=== PATIENT | female | born 1990 | race Caucasian/White ===

== ENCOUNTER 2023-08-05 23:54 | Emergency (ER) | payer OTHER ==
--- NOTE | 2023-08-06 00:55 | ED ---
Female Urogenital HPI - General Chief complaint: Vaginal Bleeding Stated complaint: Vaginal bleeding, 14 weeks Time Seen by Provider: 08/06/23 00:02 Source: patient, RN notes reviewed Mode of arrival: ambulatory Limitations: no limitations - History of Present Illness Initial comments: 33-year-old female presents emergency Department with chief complaint of vaginal bleeding. Patient states that she is should be around 14 weeks . She is scheduled to see her MAINTENANCE MANAGER the first time on Sunday and which she is seen Dr. Johns patient states that she is be positive blood type. Patient states she has painless vaginal bleeding states he initially had some spotting which is brown color in nature. She states it's bright red and which initially was only when she wiped but states that is now more heavy bleeding, large clot past. Patient again denies any flank pain, back pain. Patient is A0 - Related Data Allergies Allergy/AdvReac Type Severity Reaction Status Date / Time No Known Allergies Allergy Verified 08/05/23 23:58 Review of Systems ROS Statement: Those systems with pertinent positive or pertinent negative responses have been documented in the HPI. ROS Other: All systems not noted in ROS Statement are negative. Past Medical History Past Medical History: No Reported History History of Any Multi-Drug Resistant Organisms: None Reported Past Surgical History: Section Past Psychological History: No Psychological Hx Reported Smoking Status: Never smoker Past Alcohol Use History: None Reported Past Drug Use History: None Reported General Exam Limitations: no limitations General appearance: alert, in no apparent distress Head exam: Present: atraumatic, normocephalic, normal inspection Respiratory exam: Present: normal lung sounds bilaterally. Absent: respiratory distress, wheezes, rales, rhonchi, stridor Cardiovascular Exam: Present: regular rate, normal rhythm, normal heart sounds. Absent: systolic murmur, diastolic murmur, rubs, gallop, clicks GI/Abdominal exam: Present: soft, normal bowel sounds. Absent: distended, tenderness, guarding, rebound, rigid Back exam: Absent: CVA tenderness (R), CVA tenderness (L) Neurological exam: Present: alert Course Vital Signs 08/05/23 23:59 Temperature 98.5 F Pulse Rate 87 Respiratory 18 Rate Blood Pressure 145/84 O2 Sat by Pulse 98 Oximetry Medical Decision Making - Medical Decision Making Was pt. sent in by a medical professional or institution (PRAKASH Ross, CONTRACTING SPECIALIST, urgent care, hospital, or [place] health [facility] facility...) When possible be specific @ -MAINTENANCE MANAGER Did you speak to anyone other than the patient for history (EMS, parent, family, police, friend...)? What history was obtained from this source @ -No Did you review nursing and triage notes (agree or disagree)? Why? @ -I reviewed and agree with nursing and triage notes Were old charts reviewed (outside hosp., previous admission, EMS record, old EKG, old radiological studies, urgent care reports/EKG's, [place] health care facility records)? Report findings @ -No old charts were reviewed Differential Diagnosis (chest pain, altered mental status, abdominal pain women, abdominal pain men, vaginal bleeding, weakness, fever, dyspnea, syncope, headache, dizziness, GI bleed, back pain, seizure, CVA, palpatations, mental health, musculoskeletal)? @ -nDifferential Vaginal Bleeding: Spontaneous , threatened , molar , ectopic , bloody show, incompetent cervix, abruptioplacenta, placenta previa, uterine rupture, dysfunctional uterine bleeding, hemorrhage, uterine fibroids, this is not meant to be an all-inclusive list. EKG interpreted by me (3pts min.). @ -None X-rays interpreted by me (1pt min.). @ -None done CT interpreted by me (1pt min.). @ -None done U/S interpreted by me (1pt. min.). @ -Ultrasound OB limited shows demise What testing was considered but not performed or refused? (CT, X-rays, U/S, labs)? Why? @ -None What meds were considered but not given or refused? Why? @ -None Did you discuss the management of the patient with other professionals (professionals i.e. PRAKASH Ross, CONTRACTING SPECIALIST, lab, RT, psych nurse, manager social services, set builder, teacher, court officer, case management social worker)? Give summary @ -I did discuss case with Dr. Alexandre on-call who recommends patient called office this morning at 8:30 to be seen today Was smoking cessation discussed for >3mins.? @ -No Was critical care preformed (if so, how long)? @ -No Were there social determinants of health that impacted care today? How? (Homelessness, low income, unemployed, alcoholism, drug addiction, transportation, low edu. Level, literacy, decrease access to med. care, alf, rehab)? @ -No Was there de-escalation of care discussed even if they declined (Discuss DNR or withdrawal of care, Hospice)? DNR status @ -No What co-morbidities impacted this encounter? (DM, HTN, Smoking, COPD, CAD, Cancer, CVA, ARF, Chemo, Hep., AIDS, mental health diagnosis, sleep apnea, morbid obesity)? @ -None Was patient admitted / discharged? Hospital course, mention meds given and route, prescriptions, significant lab abnormalities, going to OR and other pertinent info. @ -Discharge patient will follow-up today in the morning for MAINTENANCE MANAGER follow-up Undiagnosed new problem with uncertain prognosis? @ -No Drug Therapy requiring intensive monitoring for toxicity (Heparin, Nitro, Insulin, Cardizem)? @ -No Were any procedures done? @ -No Diagnosis/symptom? @ - demise Acute, or Chronic, or Acute on Chronic? @ -Acute Uncomplicated (without systemic symptoms) or Complicated (systemic symptoms)? @ -Uncomplicated Side effects of treatment? @ -No Exacerbation, Progression, or Severe Exacerbation? @ -No Poses a threat to life or bodily function? How? (Chest pain, [place], [place], pneumonia, PE, COPD, DKA, ARF, appy, cholecystitis, CVA, Diverticulitis, Homicidal, Suicidal, threat to staff... and all critical care pts) @ -No Disposition Clinical Impression: demise Disposition: HOME SELF-CARE Condition: Stable Instructions (If sedation given, give patient instructions): Miscarriage (ED) Additional Instructions: Please contact the office at 8:30 in the morning.Please return to the Emergency Department if symptoms worsen or any other concerns. Is patient prescribed a controlled substance at d/c from ED?: No Referrals: Faheem Ludwig DO [Primary Care Provider] - 1-2 days Time of Disposition: 01:12
[2023-08-06 01:25] LABS: Appearance,Urine Clear (Clear); Bilirubin,Urine Negative (Negative); Blood,Urine Large (Negative); Color,Urine Colorless; Glucose,Urine (UA) Negative (Negative); Ketones,Urine Negative (Negative); Leukocyte Esterase,Urine Negative (Negative); Mucus,Urine Rare /hpf; Nitrite,Urine Negative (Negative); PH, Urine 6.5 (5.0-8.0); Protein,Urine Negative (Negative); RBC,Urine 2 /hpf (0-5); Specific Gravity,Urine 1.004 (1.001-1.035); Squamous Epithelial Cell,Urine <1 /hpf (0-4); Urobilinogen,Urine <2.0 mg/dL (<2.0); WBC,Urine 2 /hpf (0-5)
[2023-08-06 01:42] VITALS: BP 138/88; PULSE 97; RESP 20; TEMP 98
--- NOTE | 2023-08-06 01:56 | US ---
EXAM: US , Limited CLINICAL HISTORY: bleeding TECHNIQUE: Real-time limited ultrasound of the maternal uterus with image documentation. COMPARISON: No relevant prior studies available. FINDINGS: Fetus: A single intrauterine gestation is identified with the crown- rump length consistent with 10 weeks 6 days. There are no heart tones identified. Adnexa: The ovaries and adnexa were not interrogated. IMPRESSION: A single intrauterine gestation is identified with the crown-rump length consistent with 10 weeks 6 days. There are no heart tones identified. Findings are consistent with failure.
== END 2023-08-06 01:28 | disposition home or self-care (01) ==
LOC: EC 23:54
DX: O36.4XX1 Maternal care for intrauterine death, fetus 1 (principal); Z3A.10 10 weeks gestation of pregnancy
CPT/HCPCS: 76815; 81001; 99284

== ENCOUNTER → 2023-08-06 | Outpatient (CLI) | payer OTHER ==
[2023-08-07 04:06] LABS: Basophils # (A) 0.02 X 10*3/uL (0.00-0.10); Basophils % (A) 0.2 %; Eosinophils % (A) 4.4 %; HCT 42.1 % (37.2-46.3); HGB 13.9 g/dL (12.0-15.0); Lymphocytes # (A) 0.62 X 10*3/uL (0.90-5.00); Lymphocytes % (A) 6.9 %; MCV 93.8 FL (80.0-97.0); Mean Platelet Volume 10.5 FL (9.5-12.2); Monocytes # (A) 0.32 X 10*3/uL (0.20-1.00); Monocytes % (A) 3.5 %; NRBC Per 100 WBC 0 X 10*3/uL (0.00-0.01); Neutrophils # (A) 7.66 X 10*3/uL (1.80-7.70); Neutrophils % (A) 84.7 %; Platelet Count 216 X 10*3/uL (140-440); RBC 4.49 X 10*6/uL (4.10-5.20); RDW 12.1 % (11.5-14.5); WBC 9.05 X 10*3/uL (4.50-10.00)
== END | disposition home or self-care (01) ==
LOC: LABPAT 16:28
PROVIDERS: ATTEND Obstetrics & Gynecology
DX: Z01.812 Encounter for preprocedural laboratory examination (principal); O02.1 Missed abortion; Z3A.00 Weeks of gestation of pregnancy not specified
CPT/HCPCS: 85025; 86850; 86900; 86901

== ENCOUNTER 2023-08-11 00:10 | Emergency (ER) | payer OTHER ==
[2023-08-11 00:36] VITALS: TEMP 98
[2023-08-11] MEDS ORDERED: SODIUM CHLORIDE 0.9% 500 ML 500 ML IV STA (00:50)
[2023-08-11 01:47] LABS: Basophils % (A) 0 %; Eosinophils # (A) 0.3 k/uL (0-0.7); Eosinophils % (A) 3 %; HCT 39.3 % (34.0-46.0); HGB 13.5 gm/dL (11.4-16.0); Lymphocytes # (A) 1.8 k/uL (1.0-4.8); Lymphocytes % (A) 19 %; MCH 31.5 pg (25.0-35.0); MCHC 34.3 g/dL (31.0-37.0); MCV 91.8 fL (80.0-100.0); Mean Platelet Volume 7.9; Monocytes # (A) 0.3 k/uL (0-1.0); Monocytes % (A) 3 %; Neutrophils # (A) 6.9 k/uL (1.3-7.7); Neutrophils % (A) 74 %; Platelet Count 234 k/uL (150-450); RBC 4.28 m/uL (3.80-5.40); WBC 9.3 k/uL (3.8-10.6)
[2023-08-11 01:53] LABS: Appearance,Urine Clear (Clear); Bilirubin,Urine Negative (Negative); Blood,Urine Large (Negative); Color,Urine Yellow; Glucose,Urine (UA) Negative (Negative); Ketones,Urine 2+ (Negative); Leukocyte Esterase,Urine Negative (Negative); Mucus,Urine Rare /hpf; Nitrite,Urine Negative (Negative); Protein,Urine Negative (Negative); RBC,Urine >182 /hpf (0-5); Specific Gravity,Urine 1.023 (1.001-1.035); Squamous Epithelial Cell,Urine <1 /hpf (0-4); Urobilinogen,Urine <2.0 mg/dL (<2.0)
[2023-08-11 02:03] LABS: ALT 17 U/L (4-34); AST 22 U/L (14-36); African American GFR (CKD) >90 (>60 ml/min/1.73 sqM); Albumin 4.3 g/dL (3.5-5.0); Alkaline Phosphatase 73 U/L (38-126); Anion Gap 13 mmol/L; Blood Urea Nitrogen 13 mg/dL (7-17); Calcium 9.3 mg/dL (8.4-10.2); Carbon Dioxide 22 mmol/L (22-30); Chloride 104 mmol/L (98-107); Glucose 113 mg/dL (74-99); Non-African American GFR(CKD) >90 (>60 ml/min/1.73 sqM); Potassium 3.8 mmol/L (3.5-5.1); Sodium 139 mmol/L (137-145); Total Bilirubin 0.5 mg/dL (0.2-1.3); Total Protein 7.6 g/dL (6.3-8.2)
--- NOTE | 2023-08-11 02:20 | ED ---
General Adult HPI - General Chief complaint: OB/Uterine Contractions Stated complaint: Vaginal Bleeding Time Seen by Provider: 08/11/23 00:29 Source: patient Mode of arrival: ambulatory Limitations: no limitations - History of Present Illness Initial comments: 33-year-old female resents to the ED with a chief complaint of vaginal bleeding. Patient approximately 6 weeks and miscarried and was due to have a D&C on 08/07/23 however this was canceled secondary to patient being diagnosed with COVID. Patient presenting to the ED today with complaints of vaginal bleeding. States that she has soaked through approximately a pad or tampon every hour. No abdominal pain. States that she started to feel dizzy which prompted presentation to the ED for further evaluation. No chest pain or shortness of breath. No other complaints. Patient follows with Dr. Alfredo. - Related Data Home Medications Medication Instructions Recorded Confirmed Cetirizine HCl [Zyrtec] 10 mg PO DAILY 08/06/23 D3-50 1 tab PO WEEKLY 08/06/23 Escitalopram [Lexapro] 10 mg PO DAILY 08/06/23 Pnv 27-1mg 1 tab PO DAILY 08/06/23 Allergies Allergy/AdvReac Type Severity Reaction Status Date / Time No Known Allergies Allergy Verified 08/06/23 14:20 Review of Systems ROS Statement: Those systems with pertinent positive or pertinent negative responses have been documented in the HPI. ROS Other: All systems not noted in ROS Statement are negative. Past Medical History Past Medical History: No Reported History Additional Past Medical History / Comment(s): seasonal allergies. nasal congestion. missed AB still bleeding. some clots medium on her way to see OBGYN History of Any Multi-Drug Resistant Organisms: None Reported Past Surgical History: Section Past Anesthesia/Blood Transfusion Reactions: No Reported Reaction Past Psychological History: Anxiety Smoking Status: Never smoker - Past Family History Mother Family Medical History: Cancer Additional Family Medical History / Comment(s): thyroid cancer and melanoma General Exam Limitations: no limitations General appearance: alert, in no apparent distress Eye exam: Present: normal appearance Neck exam: Present: normal inspection Respiratory exam: Present: normal lung sounds bilaterally Cardiovascular Exam: Present: regular rate, normal rhythm GI/Abdominal exam: Present: soft (No Tenderness to palpation. No rebound guarding or rigidity.) External exam: Present: other (Exam chaperoned by Lili RN. Unable to visualize os secondary to some clots in vaginal vault. Minimal active bleeding.) Neurological exam: Present: alert, oriented X3 Skin exam: Present: warm, dry Course Vital Signs 08/11/23 08/11/23 00:12 01:40 Temperature 98 F Pulse Rate 85 89 Respiratory 18 19 Rate Blood Pressure 134/91 124/79 O2 Sat by Pulse 98 98 Oximetry Medical Decision Making - Medical Decision Making Was pt. sent in by a medical professional or institution (, PA, COAT MAKER, urgent care, hospital, or senior care...) When possible be specific @ -No Did you speak to anyone other than the patient for history (EMS, parent, family, police, friend...)? What history was obtained from this source @ -No Did you review nursing and triage notes (agree or disagree)? Why? @ -I reviewed and agree with nursing and triage notes Were old charts reviewed (outside hosp., previous admission, EMS record, old EKG, old radiological studies, urgent care reports/EKG's, senior care records)? Report findings @ -No old charts were reviewed Differential Diagnosis (chest pain, altered mental status, abdominal pain women, abdominal pain men, vaginal bleeding, weakness, fever, dyspnea, syncope, headache, dizziness, GI bleed, back pain, seizure, CVA, palpatations, mental health, musculoskeletal)? @ -Differential Vaginal Bleeding: Spontaneous , threatened , molar , ectopic , bloody show, incompetent cervix, abruptioplacenta, placenta previa, uterine rupture, dysfunctional uterine bleeding, hemorrhage, uterine fibroids, this is not meant to be an all-inclusive list. EKG interpreted by me (3pts min.). @ -None X-rays interpreted by me (1pt min.). @ -None done CT interpreted by me (1pt min.). @ -None done U/S interpreted by me (1pt. min.). @ -None done What testing was considered but not performed or refused? (CT, X-rays, U/S, labs)? Why? @ -None What meds were considered but not given or refused? Why? @ -None Did you discuss the management of the patient with other professionals (professionals i.e. , PRAKASH, COAT MAKER, lab, RT, psych nurse, hospice social worker, rotary engraver, teacher, corporate responsibility officer, case technician)? Give summary @ -No Was smoking cessation discussed for >3mins.? @ -No Was critical care preformed (if so, how long)? @ -No Were there social determinants of health that impacted care today? How? (Homelessness, low income, unemployed, alcoholism, drug addiction, transportation, low edu. Level, literacy, decrease access to med. care, group home, rehab)? @ -No Was there de-escalation of care discussed even if they declined (Discuss DNR or withdrawal of care, Hospice)? DNR status @ -No What co-morbidities impacted this encounter? (DM, HTN, Smoking, COPD, CAD, Cancer, CVA, ARF, Chemo, Hep., AIDS, mental health diagnosis, sleep apnea, morbid obesity)? @ -None Was patient admitted / discharged? Hospital course, mention meds given and route, prescriptions, significant lab abnormalities, going to OR and other pertinent info. @ -Discharge 33-year-old female presenting to the ED after recent miscarriage and missing D&C scheduled for 08/07/23 secondary to COVID with vaginal bleeding. Laboratory studies reviewed. CBC shows hemoglobin stable at 13.5. Pelvic exam showed minimal active vaginal bleeding. Vital signs stable. At this time, patient stable for discharge. Advised follow-up with FARMER GENERAL. Discussed return precautions with patient who verbalizes agreement. Undiagnosed new problem with uncertain prognosis? @ -No Drug Therapy requiring intensive monitoring for toxicity (Heparin, Nitro, Insulin, Cardizem)? @ -No Were any procedures done? @ -No Diagnosis/symptom? @ -Miscarriage, vaginal bleeding Acute, or Chronic, or Acute on Chronic? @ -Acute Uncomplicated (without systemic symptoms) or Complicated (systemic symptoms)? @ -Uncomplicated Side effects of treatment? @ -No Exacerbation, Progression, or Severe Exacerbation? @ -No Poses a threat to life or bodily function? How? (Chest pain, [place], [place], pneumonia, PE, COPD, DKA, ARF, appy, cholecystitis, CVA, Diverticulitis, Homicidal, Suicidal, threat to staff... and all critical care pts) @ -No - Lab Data Result diagrams: 08/11/23 01:35 08/11/23 01:35 Lab Results 08/11/23 08/11/23 08/11/23 Range/Units 01:35 01:35 01:35 WBC 9.3 (3.8-10.6) k/uL RBC 4.28 (3.80-5.40) m/uL Hgb 13.5 (11.4-16.0) gm/dL Hct 39.3 (34.0-46.0) % MCV 91.8 (80.0-100.0) fL MCH 31.5 (25.0-35.0) pg MCHC 34.3 (31.0-37.0) g/dL RDW 12.0 (11.5-15.5) % Plt Count 234 (150-450) k/uL MPV 7.9 Neutrophils % 74 % Lymphocytes % 19 % Monocytes % 3 % Eosinophils % 3 % Basophils % 0 % Neutrophils # 6.9 (1.3-7.7) k/uL Lymphocytes # 1.8 (1.0-4.8) k/uL Monocytes # 0.3 (0-1.0) k/uL Eosinophils # 0.3 (0-0.7) k/uL Basophils # 0.0 (0-0.2) k/uL Sodium 139 (137-145) mmol/L Potassium 3.8 (3.5-5.1) mmol/L Chloride 104 (98-107) mmol/L Carbon Dioxide 22 (22-30) mmol/L Anion Gap 13 mmol/L BUN 13 (7-17) mg/dL Creatinine 0.53 (0.52-1.04) mg/dL Est GFR (CKD-EPI)AfAm >90 (>60 ml/min/1.73 sqM) Est GFR (CKD-EPI)NonAf >90 (>60 ml/min/1.73 sqM) Glucose 113 H (74-99) mg/dL Calcium 9.3 (8.4-10.2) mg/dL Total Bilirubin 0.5 (0.2-1.3) mg/dL AST 22 (14-36) U/L ALT 17 (4-34) U/L Alkaline Phosphatase 73 (38-126) U/L Total Protein 7.6 (6.3-8.2) g/dL Albumin 4.3 (3.5-5.0) g/dL Urine Color Yellow Urine Appearance Clear (Clear) Urine pH 6.0 (5.0-8.0) Ur Specific [place] 1.023 (1.001-1.035) Urine Protein Negative (Negative) Urine Glucose (UA) Negative (Negative) Urine Ketones 2+ H (Negative) Urine Blood Large H (Negative) Urine Nitrite Negative (Negative) Urine Bilirubin Negative (Negative) Urine Urobilinogen <2.0 (<2.0) mg/dL Ur Leukocyte Esterase Negative (Negative) Urine RBC >182 H (0-5) /hpf Ur Squamous Epith Cells <1 (0-4) /hpf Urine Mucus Rare H (None) /hpf Disposition Clinical Impression: Miscarriage, Vaginal bleeding Disposition: HOME SELF-CARE Condition: Good Additional Instructions: Please return to the Emergency Department if symptoms worsen or any other concerns. Please follow up with your FARMER GENERAL. Is patient prescribed a controlled substance at d/c from ED?: No Referrals: Faheem Ludwig DO [Primary Care Provider] - 1-2 days Time of Disposition: 02:25
[2023-08-11 02:54] VITALS: BP 113/77; PULSE 87; RESP 17
== END 2023-08-11 02:55 | disposition home or self-care (01) ==
LOC: EC 00:10
DX: O03.9 Complete or unspecified spontaneous abortion without complication (principal); O99.341 Other mental disorders complicating pregnancy, first trimester; F41.9 Anxiety disorder, unspecified; Z79.899 Other long term (current) drug therapy
CPT/HCPCS: 36415; 80053; 81001; 85025; 86850; 86900; 86901; 96360; 99284

== ENCOUNTER → 2023-08-14 | Outpatient (CLI) | payer OTHER ==
[2023-08-14 14:54] LABS: Basophils # (A) 0.03 X 10*3/uL (0.00-0.10); Basophils % (A) 0.4 %; Eosinophils # (A) 0.28 X 10*3/uL (0.04-0.35); Eosinophils % (A) 4.1 %; HCT 35.7 % (37.2-46.3); HGB 11.8 g/dL (12.0-15.0); Lymphocytes # (A) 1.56 X 10*3/uL (0.90-5.00); Lymphocytes % (A) 22.7 %; MCH 30.6 pg (27.0-32.0); MCHC 33.1 g/dL (32.0-37.0); MCV 92.7 FL (80.0-97.0); Mean Platelet Volume 10.1 FL (9.5-12.2); Monocytes # (A) 0.33 X 10*3/uL (0.20-1.00); Monocytes % (A) 4.8 %; NRBC Per 100 WBC 0 X 10*3/uL (0.00-0.01); Neutrophils # (A) 4.61 X 10*3/uL (1.80-7.70); Neutrophils % (A) 67.3 %; Platelet Count 271 X 10*3/uL (140-440); RBC 3.85 X 10*6/uL (4.10-5.20); RDW 12.2 % (11.5-14.5); WBC 6.86 X 10*3/uL (4.50-10.00)
== END | disposition home or self-care (01) ==
LOC: LABPAT 10:27
PROVIDERS: ATTEND Obstetrics & Gynecology
DX: O02.1 Missed abortion (principal); Z32.00 Encounter for pregnancy test, result unknown
CPT/HCPCS: 36415; 85025; 86850; 86900; 86901

== ENCOUNTER 2023-08-15 09:10 | Day surgery (SDC) | payer OTHER ==
[~2023-08-15 09:10] MED LIST: DEXAMETHASONE SOD PHOSPHATE 4 MG/ML 1 ML VIAL IV ONE; HYDROmorphone 0.5 MG/0.5 ML SYRINGE IVP PRN; LACTATED RINGERS 1,000 ML IV SCH; LIDOCAINE 1% (10MG/ML) FOR IV START INTRADERMA PRN; ONDANSETRON 4 MG/2 ML VIAL IVP ONE; SCOPOLAMINE 1 MG/72 HR PATCH TRANSDERM ONE; droPERidol 5 MG/2 ML VIAL IVP ONE
[2023-08-15 10:04] VITALS: TEMP 97.6
[2023-08-15] MEDS ORDERED: PROPOFOL 10 MG/ML 20 ML VIAL IV ONE (10:46)
[2023-08-15] MEDS ORDERED: LIDOCAINE 1% INJ 10MG/ML (20 ML MDV) ONE (10:46)
[2023-08-15] MEDS ORDERED: MIDAZOLAM 2 MG/2 ML VIAL ONE (10:46)
[2023-08-15] MEDS ORDERED: KETOROLAC 15 MG/ML 1 ML VIAL ONE (10:46)
[2023-08-15] MEDS ORDERED: fentaNYL (PF) 50 MCG/ML 2 ML AMP ONE (10:46)
[2023-08-15] MEDS ORDERED: KETOROLAC 15 MG/ML 1 ML VIAL IVP PRN (11:20)
[2023-08-15] MEDS ORDERED: Acetaminophen-Codeine 300-30mg TAB PO PRN ×2 (11:20)
[2023-08-15] MEDS ORDERED: diphenhydrAMINE 50 MG/ML 1 ML VIAL IVP PRN (11:20)
[2023-08-15] MEDS ORDERED: SIMETHICONE 80 MG CHEWABLE PO PRN (11:20)
[2023-08-15] MEDS ORDERED: IBUPROFEN 600 MG TAB PO PRN (11:20)
[2023-08-15] MEDS ORDERED: ONDANSETRON 4 MG/2 ML VIAL IVP PRN (11:20)
[2023-08-15] MEDS ORDERED: METOCLOPRAMIDE 5 MG/ML 2 ML VIAL IVP PRN (11:20)
[2023-08-15 11:28] VITALS: RESP 16
[2023-08-15] MEDS ORDERED: LACTATED RINGERS 1,000 ML IV SCH (11:30)
--- NOTE | 2023-08-15 11:36 | P.OP ---
Date of Procedure: 08/15/23 Preoperative Diagnosis: #1. 10+ week missed Postoperative Diagnosis: Same Procedure(s) Performed: Dilation and aspiration curettage Anesthesia: other (Gen. by LMA) Surgeon: Valentino Alfredo Estimated Blood Loss (ml): 75 IV fluids (ml): 200 Urine output (ml): 50 Pathology: other (Intrauterine contents) Condition: stable Disposition: PACU Operative Findings: Preoperative pelvic examination demonstrated the patient's cervix to be open to more than a centimeter with tissue within the cervical os. Uterus itself was approximately 8-10 weeks in size, anteverted, mobile, and normal in shape. Adnexa were nonpalpable without any apparent masses bilaterally. Intraoperatively, tissue was clearly seen in the os and was teased out using a ring forceps. The tissue removed appeared to be the entire . Nevertheless, curettage was carried out. Description of Procedure: The patient was prepped and draped in usual fashion after general anesthesia was administered by the anesthesiologist. A weighted speculum was placed and the bladder drained of approximately 50 mL of clear billie urine. The anterior lip the cervix was grasped with a single-tooth tenaculum and tissue clearly seen in the os. A ring forceps was utilized to tease the tissue from the os. I was able to identify a fetus which was somewhat desiccated in nature. After several passes with the ring forceps, it was felt that the entire products of conception were likely removed. Nevertheless, the uterus was sounded to 10 cm and a #9 aspiration curet placed to the fundus of the uterus as the cervix was already adequately dilated. Suction was applied and thorough and circumferential aspiration curettage carried out in 2 passes. Minimal tissue was seen passing through the tubing with no tissue on the second pass whatsoever. The aspiration curet was exchanged for a sharp curette which was utilized to thoroughly and circumferentially perform curettage throughout the cavity in a circumferential fashion where the typical gritty texture was encountered throughout and no tissue was produced. One last pass was made with the aspiration curet at which time no tissue was produced. The uterus was appreciably smaller. All instrumentation was removed. There was some bleeding at the tenaculum points which was made hemostatic with pressure. All sponge, instrument, needle counts were correct. Estimated blood loss for the case was approximately 75 mL. The patient tolerated the procedure well and proceeded to the recovery room in stable condition.
[2023-08-15 12:40] VITALS: BP 105/76; PULSE 72
[2023-08-16] MEDS ORDERED: ACETAMINOPHEN TAB 325 MG TAB PO PRN (11:21)
== END 2023-08-15 12:49 | disposition home or self-care (01) ==
LOC: OR 09:10
PROVIDERS: ATTEND Obstetrics & Gynecology
DX: O02.1 Missed abortion (principal)
CPT/HCPCS: 59820; 88305; J2250; J1100; J2405; J2001; J3010; J1885; J2704

== ENCOUNTER → 2023-10-03 | Outpatient (CLI) | payer OTHER | END | disposition home or self-care (01) | LOC: LABWHC1 11:39 | PROVIDERS: ATTEND Obstetrics & Gynecology | DX: N92.5 Other specified irregular menstruation (principal) | CPT/HCPCS: 36415; 84702 ==

== ENCOUNTER → 2023-10-05 | Outpatient (CLI) | payer OTHER | END | disposition home or self-care (01) | LOC: LABWHC1 11:03 | PROVIDERS: ATTEND Obstetrics & Gynecology | DX: N92.5 Other specified irregular menstruation (principal) | CPT/HCPCS: 36415; 84702 ==

== ENCOUNTER 2024-05-29 09:56 | Inpatient (IN) | payer OTHER ==
[2024-05-29] MEDS ORDERED: CARBOPROST TROMETHAMINE 250 MCG/ML 1 ML AMP IM PRN (09:59)
[2024-05-29] MEDS ORDERED: TRANEXAMIC 1,000 MG/100ML-NACL 1,000 MG in EMPTY BAG 1 BAG IV PRN (09:59)
[2024-05-29] MEDS ORDERED: miSOPROStoL 200 MCG TAB PO PRN (09:59)
[2024-05-29] MEDS ORDERED: OXYTOCIN 10 UNIT/ML 1 ML VIAL IM PRN (09:59)
[2024-05-29] MEDS ORDERED: METHYLERGONOVINE 0.2 MG/ML 1 ML AMP IM PRN (09:59)
[2024-05-29 10:43] LABS: Basophils % (A) 0 %; Eosinophils # (A) 0.2 k/uL (0-0.7); Eosinophils % (A) 3 %; HCT 37.4 % (34.0-46.0); HGB 12.6 gm/dL (11.4-16.0); Lymphocytes # (A) 1.1 k/uL (1.0-4.8); Lymphocytes % (A) 14 %; MCH 30.2 pg (25.0-35.0); MCHC 33.6 g/dL (31.0-37.0); MCV 89.9 fL (80.0-100.0); Mean Platelet Volume 8.2; Monocytes # (A) 0.3 k/uL (0-1.0); Monocytes % (A) 4 %; Neutrophils % (A) 77 %; Platelet Count 194 k/uL (150-450); RBC 4.16 m/uL (3.80-5.40); RDW 14.2 % (11.5-15.5); WBC 7.8 k/uL (3.8-10.6)
[2024-05-29] MEDS: LACTATED RINGERS 1,000 ML IV SCH (10:48)
[2024-05-29] MEDS ORDERED: HYDROmorphone 0.5 MG/0.5 ML SYRINGE IVP PRN (11:29)
[2024-05-29] MEDS ORDERED: NALBUPHINE 10 MG/ML (10 ML MDV) IV PRN (11:29)
[2024-05-29] MEDS ORDERED: NALOXONE 0.4 MG/ML 1 ML VIAL IV PRN (11:29)
[2024-05-29] MEDS ORDERED: ONDANSETRON 4 MG/2 ML VIAL IVP PRN (11:29)
[2024-05-29] MEDS: CITRIC ACID-SODIUM CITRATE 15 ML CUP PO ONE (11:41)
[2024-05-29] MEDS ORDERED: MORPHINE SULFATE (PF) 0.3 MG/0.3 ML SYR ONE (12:19)
[2024-05-29] MEDS ORDERED: KETOROLAC 30 MG/ML 1 ML VIAL ONE (12:19)
[2024-05-29] MEDS ORDERED: ONDANSETRON 4 MG/2 ML VIAL ONE (12:19)
[2024-05-29] MEDS ORDERED: PHENYLEPHRINE-0.9% NACL SYG 1,000 MCG/10 ML SYRINGE ONE (12:19)
[2024-05-29] MEDS ORDERED: OXYTOCIN 30 UNITS/500 ML NS BAG IV ONE (12:19)
[2024-05-29] MEDS ORDERED: NALBUPHINE 10 MG/ML (10 ML MDV) ONE (12:19)
--- NOTE | 2024-05-29 12:27 | P.HPOB ---
History of Present Illness H&P Date: 05/29/24 Chief Complaint: 39-0/7 weeks, previous section, requesting repeat Patient is a 33-year-old 3 para 1-0-1-1 admitted at 39-0/7 weeks as established by 5-week ultrasound. She is admitted for repeat low-transverse section having undergone a previous section and has requested repeat. Her has been entirely uncomplicated and group B strep status is negative. She was found to be in breech presentation at 36 weeks. Attempts to confirm or refute that on labor delivery were unsuccessful as the hand-held ultrasound unit failed. On labor delivery, all signs are reassuring with a category 1 heart rate tracing. Obstetrical history: 3 para 1-0-1-1 with 1 term section and 1 early miscarriage. Current statistics are listed in history of present illness. EDC of 06/05/2024 was established by a 5-week ultrasound. Laboratory work up demonstrates a blood type of B+ with a negative antibody screen. Rubella status is immune. The remainder of the laboratory workup is within normal limits. Early Glucola was elevated but followed by a normal 3- hour glucose tolerance test. Second trimester Glucola was also elevated and followed by a normal 3-hour glucose tolerance test. Strep status is negative. Gynecologic history: Unremarkable with no history of any infections to include STDs. Review of Systems Review of systems is confined to history of present illness. Past Medical History Past Medical History: No Reported History Additional Past Medical History / Comment(s): seasonal allergies History of Any Multi-Drug Resistant Organisms: None Reported Past Surgical History: Section Additional Past Surgical History / Comment(s): D&C 2022 Past Anesthesia/Blood Transfusion Reactions: No Reported Reaction, Postoperative Nausea & Vomiting (PONV) Additional Past Anesthesia/Blood Transfusion Reaction / Comment(s): PONV after last Past Psychological History: Anxiety Additional Psychological History / Comment(s): Pt resides with spouse and 2 yr old kaylen. Smoking Status: Never smoker Past Alcohol Use History: None Reported Past Drug Use History: None Reported - Past Family History Mother Family Medical History: Cancer Additional Family Medical History / Comment(s): thyroid cancer and melanoma Medications and Allergies Home Medications Medication Instructions Recorded Confirmed Type Cetirizine HCl [Zyrtec] 10 mg PO QAM 08/06/23 05/29/24 History Escitalopram [Lexapro] 10 mg PO QAM 08/06/23 05/29/24 History Pnv 27-1mg 1 tab PO HS 08/06/23 05/29/24 History Vitamin D3-50 1 tab PO DAILY 08/14/23 05/29/24 History Aspirin [Adult Low Dose Aspirin EC] 81 mg PO DAILY 05/23/24 05/29/24 History Stool Softener 1 dose PO DAILY 05/23/24 05/29/24 History Allergies Allergy/AdvReac Type Severity Reaction Status Date / Time adhesive tape Allergy Red skin Verified 05/23/24 15:18 Exam Vital Signs Temp Pulse Resp BP Pulse Ox 05/29/24 10:30 98.3 F 99 18 121/81 96 Intake and Output 05/28/24 05/29/24 05/29/24 22:59 06:59 14:59 Other: Weight 91.172 kg General, this is a well-developed, well-nourished white female in no acute distress. Her heart has a regular rhythm and rate without murmur. Her lungs are clear to auscultation bilaterally in all [place]. Her abdomen is gravid, nondistended, has normal active bowel sounds, soft, nontender, and without any palpable masses aside from uterine fundus. Her extremities are without any cyanosis, clubbing, or significant edema and are nontender to palpation bilaterally. Digital cervical examination is deferred. Results Result Diagrams: 05/29/24 10:27 Assessment and Plan (1) Term Current Visit: Yes Status: Acute Code(s): Z34.90 - ENCNTR FOR SUPRVSN OF NORMAL , UNSP, UNSP TRIMESTER SNOMED Code(s): 04984419 (2) Previous section Current Visit: Yes Status: Acute Code(s): Z98.891 - HISTORY OF UTERINE SCAR FROM PREVIOUS SURGERY SNOMED Code(s): 136351003 Plan: The patient is a admitted for repeat low-transverse section. The risks and complications of the procedure been thoroughly discussed and she has understood and agreed to proceed.
[2024-05-29] MEDS ORDERED: diphenhydrAMINE 25 MG CAP PO PRN (13:07)
[2024-05-29] MEDS ORDERED: SIMETHICONE 80 MG CHEWABLE PO PRN (13:07)
[2024-05-29] MEDS ORDERED: diphenhydrAMINE 50 MG CAP PO PRN (13:07)
[2024-05-29] MEDS ORDERED: METOCLOPRAMIDE 5 MG/ML 2 ML VIAL IVP PRN (13:07)
[2024-05-29] MEDS ORDERED: diphenhydrAMINE 50 MG/ML 1 ML VIAL IVP PRN (13:07)
[2024-05-29] MEDS ORDERED: ZOLPIDEM 5 MG TAB PO PRN (13:07)
--- NOTE | 2024-05-29 13:09 | P.ANPRN ---
Procedure Note - Anesthesia - Epidural/Spinal Spinal Time Out Performed: Yes Date of Procedure: 05/29/24 Procedure Start Time: 12:30 Procedure Stop Time: 12:34 Location of Patient: PreOp Indication: Acute Post-Operative Pain, Requested by Surgeon (jostin) Sedation Type: Sedate with meaningful contact maintained Preparation: Sterile Prep Number of Attempts: 1 Position: Sitting Catheter: None Needle Guage: 25 Injectate: Dm 200mcg, bupivacaine 0.75% 1.2 Blood Aspirated: No Pain Paresthesia on Injection Noted: No Events: Uneventful and Well Tolerated
--- NOTE | 2024-05-29 13:15 | P.OP ---
Date of Procedure: 05/29/24 Preoperative Diagnosis: #1. 39-0/7 weeks, previous section, requesting repeat Postoperative Diagnosis: Same Procedure(s) Performed: #1. Repeat low-transverse section Anesthesia: spinal Surgeon: Valentino Alfredo Speech Writer #1: Trista Larry Estimated Blood Loss (ml): 541 IV fluids (ml): 800 Urine output (ml): 400 Pathology: none sent Condition: stable Disposition: floor Operative Findings: Patient was taken to the operating room where she was delivered of a viable 7 pound 6 ounce baby girl with Apgars of 9 at 1 minute and 10 at 5 minutes in the occiput transverse position. The placenta was delivered manually, intact, grossly normal with a grossly normal three-vessel cord. The uterus, tubes, and ovaries were entirely normal to inspection. Description of Procedure: Patient was prepped and draped in the usual fashion after spinal anesthesia was administered by the anesthesiologist. A Pfannenstiel incision was made through pre-existing scar and extended into the abdominal cavity with minimal difficulty. The bladder was noted to be significantly distal to the intended site of incision and was left intact. Us 2 cm incision was made the transverse plane of the lower uterine segment to enter the uterus at which time clear fluid was noted. The incision was extended in both directions bluntly. The head was delivered up and through the incision where the nose and mouth were thoroughly suctioned. The remainder of the was delivered onto the field where the cord was doubly clamped, cut, and the infant passed resuscitative andrew ures with weight and Apgars as noted above. The placenta was delivered manually, intact, grossly normal with a grossly normal three-vessel cord. The uterus was exteriorized and the anterior cavity uterus swept of any remaining placental or membranous fragments. The margins of the incision were grasped with Gamez clamps and the incision closed in 2 layers. The first layer was a running locking stitch of 0 chromic catgut followed by a running imbricating layer of 0 chromic catgut, each from margin to margin. Hemostasis appeared to be excellent. The posterior cul-de-sac was suctioned with a guard followed by laparotomy sponge. The uterine and ovarian findings were normal as noted above. The uterus was replaced within the abdominal cavities and the gutters were swept of any remaining blood, fluid, or clot. Reexamination of the incision demonstrated excellent hemostasis. The parietal peritoneum was loosely reapproximated and the layer of muscles examined and found to be hemostatic. The fascia was closed with a single running stitch of 0 Vicryl proceeding from margin to margin. The subcutaneous tissues were irrigated, made hemostatic with the Bovie, and reapproximated with a running stitch of 3-0 plain catgut. The skin was reapproximated with a running subcuticular stitch of 4-0 Vicryl from margin to margin. This was followed by half-inch Steri-Strips placed with M astisol. Quantitative blood loss for the case was 541 mL. There were no complications. All sponge, instrument, and needle counts were correct. The patient tolerated the procedure well and proceeded to the recovery room in stable condition. Both mother and infant are resting comfortably in recovery.
[2024-05-29] MEDS: OXYTOCIN 30 UNITS/500 ML NS 30 UNIT in SALINE 1 500ML.BAG IV SCH (14:23)
[2024-05-29] MEDS: ACETAMINOPHEN TAB 500 MG TAB PO SCH (15:29)
[2024-05-29] MEDS: KETOROLAC 15 MG/ML 1 ML VIAL IVP PRN (18:05)
[2024-05-29] MEDS: diphenhydrAMINE 50 MG/ML 1 ML VIAL IVP PRN (21:48)
[2024-05-30] MEDS ORDERED: ACETAMINOPHEN TAB 500 MG TAB PO SCH
[2024-05-30] MEDS: SENNOSIDES-DOCUSATE SODIUM 1 EACH TAB PO SCH (00:22)
[2024-05-30 04:06] LABS: Basophils % (A) 0 %; Eosinophils # (A) 0.2 k/uL (0-0.7); Eosinophils % (A) 2 %; HCT 33.5 % (34.0-46.0); HGB 11.5 gm/dL (11.4-16.0); Lymphocytes # (A) 1.4 k/uL (1.0-4.8); Lymphocytes % (A) 15 %; MCH 30.8 pg (25.0-35.0); MCHC 34.4 g/dL (31.0-37.0); MCV 89.6 fL (80.0-100.0); Mean Platelet Volume 8.7; Monocytes # (A) 0.4 k/uL (0-1.0); Monocytes % (A) 4 %; Neutrophils # (A) 7.3 k/uL (1.3-7.7); Neutrophils % (A) 77 %; Platelet Count 170 k/uL (150-450); RBC 3.74 m/uL (3.80-5.40); RDW 14.8 % (11.5-15.5); WBC 9.5 k/uL (3.8-10.6)
--- NOTE | 2024-05-30 07:54 | P.PNOBGPC ---
Subjective - Subjective Patient reports: Reports appetite normal, Reports voiding normally, Reports pain well controlled, Reports ambulating normally : doing well Objective - Vital Signs Latest vital signs: Vital Signs Temp Pulse Resp BP Pulse Ox 05/30/24 00:00 97.9 F 86 16 112/77 96 05/29/24 22:00 16 98 05/29/24 20:00 97.8 F 85 16 130/88 98 05/29/24 18:00 16 05/29/24 16:00 97.9 F 84 16 127/64 97 05/29/24 15:26 18 05/29/24 15:07 97.5 F L 80 16 116/60 98 05/29/24 14:52 80 18 132/63 97 05/29/24 14:37 99 18 142/70 96 05/29/24 14:29 16 05/29/24 14:22 70 18 118/63 96 05/29/24 14:07 75 18 112/60 97 05/29/24 13:52 77 16 108/60 97 05/29/24 13:37 84 16 113/61 96 05/29/24 13:22 89 16 114/69 97 05/29/24 13:07 97.6 F 82 16 110/65 98 05/29/24 10:30 98.3 F 99 18 121/81 96 Intake and Output 05/29/24 05/30/24 05/30/24 22:59 06:59 14:59 Intake Total 100 Output Total 810 250 Balance -710 -250 Intake: Oral 100 Output: Urine 800 250 Uretheral (Germain) 300 Output, Quantitative 10 Blood Loss Other: Voiding Method Indwelling Catheter # Voids 1 - Exam Extremities: Present: normal Abdomen: Present: normal appearance, soft. Absent: distention, tenderness Incision: Present: normal, dry, intact Uterus: Present: normal, firm (The uterine fundus is tonic and minimally tender well below the umbilicus.) - Labs Labs: Abnormal Lab Results - Last 24 Hours (Table) 05/30/24 Range/Units 02:40 RBC 3.74 L (3.80-5.40) m/uL Hct 33.5 L (34.0-46.0) % Assessment and Plan (1) Term Current Visit: Yes Status: Acute Code(s): Z34.90 - ENCNTR FOR SUPRVSN OF NORMAL , UNSP, UNSP TRIMESTER SNOMED Code(s): 22934297 (2) Previous section Current Visit: Yes Status: Acute Code(s): Z98.891 - HISTORY OF UTERINE SCAR FROM PREVIOUS SURGERY SNOMED Code(s): 852659760 (3) S/P section Current Visit: Yes Status: Acute Code(s): Z98.891 - HISTORY OF UTERINE SCAR FROM PREVIOUS SURGERY SNOMED Code(s): 456749122 Plan: Continue routine and postoperative care. I have encouraged the patient ambulate in the hallways routinely. I would anticipate her discharge tomorrow morning.
--- NOTE | 2024-05-30 11:20 | P.PN ---
Progress Note - Text 05/30/24 639am 3-year-old female status post with spinal Duramorph. Patient seen and evaluated for postop pain control, patient has a VAS of 0 with no complaints of nausea vomiting or pruritus. Patient doing pretty well
[2024-05-30] MEDS: IBUPROFEN 800 MG TAB PO SCH (12:20)
[2024-05-31 07:48] VITALS: BP 118/78; PULSE 84; RESP 18; TEMP 99.2
--- NOTE | 2024-05-31 11:35 | P.DS ---
Providers Date of admission: 05/29/24 09:56 Expected date of discharge: 05/31/24 Attending physician: Valentino Alfredo Primary care physician: Stated None - Discharge Diagnosis(es) (1) S/P section Current Visit: Yes Status: Acute Hospital Course: Patient presented for repeat low transverse . She underwent this procedure without complication. Denies nausea, vomiting, chest pain, shortness of breath or calf pain. Patient will be discharged home day #2 in stable condition to follow-up in 2 weeks Plan - Discharge Summary Discharge Rx Participant: No New Discharge Prescriptions: New Ibuprofen [Motrin] 800 mg PO Q8HR 30 Days tab No Action Stool Softener 1 dose PO DAILY Escitalopram [Lexapro] 10 mg PO QAM Cetirizine HCl [Zyrtec] 10 mg PO QAM Pnv 27-1mg 1 tab PO HS Vitamin D3-50 1 tab PO DAILY Aspirin [Adult Low Dose Aspirin EC] 81 mg PO DAILY Discharge Medication List Cetirizine HCl [Zyrtec] 10 mg PO QAM 08/06/23 [History] Escitalopram [Lexapro] 10 mg PO QAM 08/06/23 [History] Pnv 27-1mg 1 tab PO HS 08/06/23 [History] Vitamin D3-50 1 tab PO DAILY 08/14/23 [History] Aspirin [Adult Low Dose Aspirin EC] 81 mg PO DAILY 05/23/24 [History] Stool Softener 1 dose PO DAILY 05/23/24 [History] Ibuprofen [Motrin] 800 mg PO Q8HR 30 Days tab 05/31/24 [Rx] Follow up Appointment(s)/Referral(s): Valentino Alfredo MD [STAFF PHYSICIAN] - 06/12/24 2:00 pm (Post Appointment 07/10/2024 @ 10:00am) Discharge Disposition: HOME SELF-CARE
== END 2024-05-31 12:20 | disposition home or self-care (01) | DRG 788 ==
LOC: 4FBP 09:56
PROVIDERS: ADMIT Obstetrics & Gynecology; ATTEND Obstetrics & Gynecology
PROC: 10D00Z1 Extraction of Products of Conception, Low, Open Approach (ICD-10-PCS; principal; 2024-05-29 12:00)
DX: O34.211 Maternal care for low transverse scar from previous cesarean delivery (principal); O99.344 Other mental disorders complicating childbirth; O32.8XX0 Maternal care for other malpresentation of fetus, not applicable or unspecified; F41.9 Anxiety disorder, unspecified; Z37.0 Single live birth; Z3A.39 39 weeks gestation of pregnancy; Z79.82 Long term (current) use of aspirin; Z91.048 Other nonmedicinal substance allergy status
CPT/HCPCS: 85025; 86850; 86900; 86901